=== PATIENT | male | born 1975 | race African-American/Black ===

== ENCOUNTER 2018-02-14 03:34 | Emergency (ER) | payer OTHER ==
[2018-02-14 03:43] VITALS: BP 127/80; BMI 51.8
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
[2018-02-14 04:40] LABS: EOSINOPHILS # (AUTO) 0.3 x10^3/uL (0.0-0.2); EOSINOPHILS % (AUTO) 6.8 % (0.9-2.9); HEMATOCRIT 41.3 % (42.0-54.0); HEMOGLOBIN 13.9 g/dL (13.5-18.0); LYMPHOCYTES # (AUTO) 1.4 X10^3/uL (1.3-2.9); LYMPHOCYTES % (AUTO) 30.8 % (21.0-51.0); MEAN CORPUSCULAR HEMOGLOBIN 27.8 pg (27.0-34.0); MEAN CORPUSCULAR HGB CONC 33.6 g/dL (33.0-35.0); MEAN CORPUSCULAR VOLUME 82.8 fL (80.0-100.0); MEAN PLATELET VOLUME 6.5 fL (7.4-11.0); MONOCYTES # (AUTO) 0.3 x10^3/uL (0.3-0.8); MONOCYTES % (AUTO) 7.3 % (0.0-13.0); NEUTROPHILS # (AUTO) 2.5 x10^3/uL (2.2-4.8); NEUTROPHILS % (AUTO) 54.1 % (42.0-75.0); PLATELET COUNT 319 X10^3/uL (150.0-450.0); RED BLOOD COUNT 4.99 X10^6/uL (4.7-6.0); RED CELL DISTRIBUTION WIDTH 14.5 % (11.6-16.5); WHITE BLOOD COUNT 4.7 X10^3/uL (3.6-10.0)
[2018-02-14 04:53] LABS: ALANINE AMINOTRANSFERASE 38 Units/L (12-78); ALBUMIN 3.2 g/dL (3.4-5.0); ALKALINE PHOSPHATASE 86 Units/L (46-116); ASPARTATE AMINO TRANSFERASE 21 Units/L (15-37); BLOOD UREA NITROGEN 18 mg/dL (7-18); CALCIUM 7.9 mg/dL (8.5-10.1); CARBON DIOXIDE 26.2 mmol/L (21-32); CHLORIDE 104 mmol/L (98-107); COR CA(FOR HYPOALB) 8.5 mg/dL (8.5-10.1); CREATININE 1.29 mg/dL (0.70-1.30); SODIUM 139 mmol/L (136-145); TOTAL PROTEIN 7.5 g/dL (6.4-8.2); eGFR BLACK RACES > 60 (>60); eGFR NON BLACK RACES > 60 (>60)
[2018-02-14 05:00] LABS: CKMB % 0.5 % (<4); CREATINE KINASE 459 Units/L (39-308); CREATINE KINASE MB 2.5 ng/mL (0-4.0); TROPONIN I < 0.02 ng/mL (0-1.5)
[2018-02-14] MEDS ORDERED: PEPCID TAB 20 MG PO ONE (05:12)
[2018-02-14] MEDS ORDERED: ASPIRIN 81 MG CHEWTAB PO ONE (05:12)
[2018-02-14 05:17] LABS: B-TYPE NATRIURETIC PEPTIDE 51.7 pg/mL (0-79)
[2018-02-14] MEDS ORDERED: ASPIRIN 81 MG CHEWTAB ONE (05:18)
[2018-02-14] MEDS ORDERED: PEPCID TAB 20 MG ONE (05:18)
[2018-02-14 05:27] LABS: AMYLASE 32 Units/L (25-115); LIPASE 53 Units/L (73-393)
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
[2018-02-14 06:07] LABS: ABG BASE EXCESS 1.8 mmol/L (-2.0-2.0); ABG HCO3 27.2 mmol/L (22-26)
== END 2018-02-14 06:21 | disposition home or self-care (01) ==
LOC: ER 03:34
DX: R07.89 Other chest pain (principal); R06.02 Shortness of breath
CPT/HCPCS: 36415; 36600; 71046; 80053; 82150; 82550; 82553; 82803; 83690; 83880; 84484; 85025; 85378; 93005; 99283; 99284